=== PATIENT | female | born 1935 | race Caucasian/White ===

== ENCOUNTER 2016-11-02 09:28 | Outpatient (CLI) | payer MEDICARE, OTHER ==
[2014-04-25 11:16] VITALS: BP 131/59
== END 2016-11-02 09:30 ==
LOC: RAD 09:28
PROVIDERS: ATTEND Internal Medicine Medical Oncology
DX: M81.0 Age-related osteoporosis without current pathological fracture (principal)
CPT/HCPCS: 77080

== ENCOUNTER 2017-01-01 14:09 | Outpatient (CLI) | payer MEDICARE, OTHER ==
[2014-04-25 11:16] VITALS: BP 131/59
[2017-01-01 15:16] LABS: eGFR (African) > 60; eGFR (Non-African) > 60
[2017-01-04 03:22] LABS: URINE CREAT MG/DAY 621 mg/day (740-1570)
== END 2017-01-01 14:10 ==
LOC: LAB 14:09
PROVIDERS: ATTEND Internal Medicine Endocrinology, Diabetes & Metabolism
DX: E83.52 Hypercalcemia (principal)
CPT/HCPCS: 36415; 80053; 82306; 82340; 82570; 83970; 84439; 84443

== ENCOUNTER 2017-01-19 13:47 | Outpatient (CLI) | payer MEDICARE, OTHER ==
[2014-04-25 11:16] VITALS: BP 131/59
--- NOTE | 2017-01-19 18:37 | Diagnostic Imaging Report ---
APRIL PICKETT [facility] [address] [facility].[address] [address] Report Submission Date: Jan 19, 2017 3:15:52 PM CDT Patient Study Name: TAI LANDAVERDE Date: Jan 19, 2017 2:30:52 PM CDT Modality Type: CR Gender: F Description: LOWER EXTREMITY : 33 Institution: [facility] Physician: APRIL PICKETT 3 views each of both knees History: Bilateral knee pain Findings: No comparison studies No evidence of acute fracture or dislocation of both knees. Degenerative changes with narrowing of the medial knee joint space No suprapatellar effusion. Patellar enthesophytes are seen. 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 Electronically signed on Jan 19, 2017 3:15:52 PM CDT by: Renee ROYAL
== END 2017-01-19 13:50 ==
LOC: RAD 13:47
PROVIDERS: ATTEND Anesthesiology Pain Medicine
DX: M25.561 Pain in right knee (principal); M25.562 Pain in left knee

== ENCOUNTER 2017-05-11 13:56 | Outpatient (CLI) | payer MEDICARE, OTHER ==
[2014-04-25 11:16] VITALS: BP 131/59
[2017-05-11 14:51] LABS: eGFR (African) > 60; eGFR (Non-African) > 60
[2017-05-12 16:41] LABS: URINE CREAT MG/DAY 417 mg/day (740-1570)
== END 2017-05-11 13:57 ==
LOC: LAB 13:56
PROVIDERS: ATTEND Internal Medicine Endocrinology, Diabetes & Metabolism
DX: E83.52 Hypercalcemia (principal)
CPT/HCPCS: 36415; 80053; 82306; 82340; 82570; 84439; 84443

== ENCOUNTER 2017-05-22 12:38 | Outpatient (CLI) | payer MEDICARE, OTHER ==
[2014-04-25 11:16] VITALS: BP 131/59
== END 2017-05-22 12:40 ==
LOC: LAB 12:38
PROVIDERS: ATTEND Internal Medicine Endocrinology, Diabetes & Metabolism
DX: E88.81 Metabolic syndrome and other insulin resistance (principal); R73.01 Impaired fasting glucose; E78.5 Hyperlipidemia, unspecified
CPT/HCPCS: 36415; 80061; 83036

== ENCOUNTER 2017-06-18 11:15 | Outpatient (CLI) | payer MEDICARE, OTHER ==
[2014-04-25 11:16] VITALS: BP 131/59
== END 2017-06-18 11:16 ==
LOC: LAB 11:15
PROVIDERS: ATTEND Internal Medicine Endocrinology, Diabetes & Metabolism
DX: E78.5 Hyperlipidemia, unspecified (principal); R73.01 Impaired fasting glucose
CPT/HCPCS: 36415; 80061; 83036

== ENCOUNTER 2018-05-23 11:24 | Outpatient (CLI) | payer MEDICARE, OTHER ==
[2014-04-25 11:16] VITALS: BP 131/59
[2018-05-23 12:10] LABS: eGFR (African) > 60; eGFR (Non-African) > 60
== END 2018-05-23 11:25 ==
LOC: LAB 11:24
PROVIDERS: ATTEND Internal Medicine Endocrinology, Diabetes & Metabolism
DX: E21.3 Hyperparathyroidism, unspecified (principal); R73.01 Impaired fasting glucose; I10 Essential (primary) hypertension; E55.9 Vitamin D deficiency, unspecified
CPT/HCPCS: 36415; 80053; 82306; 83036; 83970; 84439; 84443

== ENCOUNTER 2018-06-19 14:06 | Outpatient (CLI) | payer MEDICARE, OTHER ==
[2014-04-25 11:16] VITALS: BP 131/59
[2018-06-19 15:30] LABS: eGFR (Non-African) > 60
== END 2018-06-19 14:08 ==
LOC: LAB 14:06
PROVIDERS: ATTEND Internal Medicine Cardiovascular Disease
DX: R60.9 Edema, unspecified (principal)
CPT/HCPCS: 36415; 80048

== ENCOUNTER 2018-07-19 12:42 | Outpatient (CLI) | payer MEDICARE, OTHER ==
[2014-04-25 11:16] VITALS: BP 131/59
[2018-07-19 13:45] LABS: eGFR (Non-African) > 60
== END 2018-07-19 12:44 ==
LOC: LAB 12:42
PROVIDERS: ATTEND Internal Medicine Cardiovascular Disease
DX: R06.02 Shortness of breath (principal); R06.9 Unspecified abnormalities of breathing
CPT/HCPCS: 36415; 80053

== ENCOUNTER 2018-09-23 13:32 | Outpatient (CLI) | payer MEDICARE, OTHER ==
[2014-04-25 11:16] VITALS: BP 131/59
--- NOTE | 2018-09-23 16:00 | Diagnostic Imaging Report ---
ANNEMARIE RIVERA [facility] [id number] [facility] [address] 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 No anterior compression. Scattered osteophytes. Aortic vascular calcifications. Impression: Degenerative changes. No vertebral body compression deformity. If patient is experiencing neurologic symptoms, consider obtaining MRI to further evaluate. Electronically signed on Sep 23, 2018 3:16:45 PM [employer] by: Itz ROYAL
== END 2018-09-23 13:33 ==
LOC: RAD 13:32
PROVIDERS: ATTEND Family Medicine
DX: M54.5 Low back pain (principal)
CPT/HCPCS: 72100

== ENCOUNTER 2018-11-11 12:38 | Outpatient (CLI) | payer MEDICARE, OTHER ==
[2014-04-25 11:16] VITALS: BP 131/59
--- NOTE | 2018-11-20 11:51 | Diagnostic Imaging Report ---
ANNEMARIE RIVERA [facility] [address] [facility].[address] 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 TECHNIQUE: Dual energy x-ray of absorption examination of the right hip and lumbar spine in AP projection was performed. Right Hip: The mean bone mineral density of the right hip is 1.022 g/cm2 calcium hydroxyapatite, correlating with a T-score of 0.1. Left Hip: The mean bone mineral density of the left hip is 0.735 g/cm2 calcium hydroxyapatite, correlating with a T-score of -2.2. It should be noted that the entire left hip is not included, and there is some artifact further decreasing the BMD calculation of the left hip. Lumbar Spine (L1-L4): The mean bone mineral density is 1.202 g/cm2 calcium hydroxyapatite, correlating with a T-score of 0.2. BMD of the lumbar spine is decreased 1.6% since the previous study. IMPRESSION: 1. The patient's right hip T-score is consistent with normal bone mineral density. 2. The patient's left hip T-score is consistent with osteopenia. The entire left hip is not included on this study, for reasons unknown. There is artifact further artifactually decreasing the BMD of the left hip. 3. The patient's lumbar spine T-score is consistent with normal bone mineral density. Electronically signed on Nov 15, 2018 6:25:27 AM BAKARI by: Jason ROYAL
== END 2018-11-11 12:40 ==
LOC: RAD 12:38
PROVIDERS: ATTEND Family Medicine
DX: Z78.0 Asymptomatic menopausal state (principal); M85.852 Other specified disorders of bone density and structure, left thigh
CPT/HCPCS: 77080

== ENCOUNTER 2018-12-09 11:48 | Outpatient (CLI) | payer MEDICARE, OTHER ==
[2014-04-25 11:16] VITALS: BP 131/59
[2018-12-09 12:26] LABS: eGFR (Non-African) > 60
== END 2018-12-09 11:50 ==
LOC: LAB 11:48
PROVIDERS: ATTEND Internal Medicine Endocrinology, Diabetes & Metabolism
DX: E21.3 Hyperparathyroidism, unspecified (principal); E55.9 Vitamin D deficiency, unspecified
CPT/HCPCS: 36415; 80053; 82306

== ENCOUNTER 2019-08-07 14:21 | Outpatient (CLI) | payer MEDICARE, OTHER ==
[2014-04-25 11:16] VITALS: BP 131/59
[2019-08-07 14:48] LABS: eGFR (Non-African) > 60
== END 2019-08-07 14:26 ==
LOC: LAB 14:21
PROVIDERS: ATTEND Nurse Practitioner
DX: I10 Essential (primary) hypertension (principal); I49.5 Sick sinus syndrome
CPT/HCPCS: 36415; 80048

== ENCOUNTER 2019-10-31 12:55 | Outpatient (CLI) | payer MEDICARE, OTHER ==
[2014-04-25 11:16] VITALS: BP 131/59
[2019-10-31 14:52] LABS: eGFR (Non-African) > 60
== END 2019-10-31 13:00 ==
LOC: LAB 12:55
PROVIDERS: ATTEND Internal Medicine Endocrinology, Diabetes & Metabolism
DX: E21.3 Hyperparathyroidism, unspecified (principal); E55.9 Vitamin D deficiency, unspecified
CPT/HCPCS: 36415; 80053; 82306